=== PATIENT | female | born 1995 | race African-American/Black ===

== ENCOUNTER 2017-04-27 17:52 | Emergency (ER) | payer MEDICARE, OTHER ==
[~2017-04-27] VITALS: Ht 162.6 cm; Wt 64.0 kg
[~2017-04-27 17:52] MED LIST: ALBU6.7H3
[2017-04-27 18:00] VITALS: BP 153/92
[2017-04-27] MEDS ORDERED: SUMA100T16 PO (18:06)
[2017-04-27] MEDS ORDERED: CETI-101 PO (18:07)
[2017-04-27] MEDS ORDERED: ORAL CONTRACEPTIVE (18:07)
[2017-04-27] MEDS ORDERED: FLUT9.9S NS (18:07)
== END 2017-04-28 01:25 | disposition left against medical advice (07) ==
LOC: ER 04-28 01:17
DX: N39.9 Disorder of urinary system, unspecified (principal); N89.8 Other specified noninflammatory disorders of vagina; Z53.21 Procedure and treatment not carried out due to patient leaving prior to being seen by health care provider

== ENCOUNTER 2021-03-13 01:27 | Emergency (ER) | payer OTHER ==
[~2021-03-13] VITALS: Ht 160 cm; Wt 69.0 kg
[~2021-03-13 01:27] MED LIST changes: -ALBU6.7H3; +ALBU6.7H9; +CETI-89 PO; +FLUT9.9S NS; +ORAL CONTRACEPTIVE; +SUMA100T16 PO
[2021-03-13] MEDS ORDERED: HYDROCODONE/ACETAMINOPHEN 5/325MG TABLET PO STA (02:32)
[2021-03-13 02:42] LABS: CLARITY URINE CLEAR (CLEAR); COLOR URINE ORANGE (YELLOW); KETONES URINE NEGATIVE (NEGATIVE); LEUKOCYTE ESTERASE URINE TRACE (NEGATIVE); NITRITE URINE NEGATIVE (NEGATIVE); OCCULT BLOOD URINE 3+ (NEGATIVE); PH URINE 6.5 (4.5-8.0); PROTEIN URINE 1+ (NEGATIVE); SPECIFIC GRAVITY URINE 1.007 (1.005-1.030); UROBILINOGEN URINE 0.2 E.U./dL (0.2-1.0)
[2021-03-13 03:14] LABS: CHLORIDE 107 mEq/L (98-107)
[2021-03-13 03:15] LABS: BASOPHILS % 0.4 % (0.0-2.0); EOSINOPHILS % 0.6 % (0.0-5.0); HEMATOCRIT. 35.4 % (36.0-48.0); HEMOGLOBIN. 11.8 g/dL (12.0-16.0); LYMPHOCYTES % 25.9 % (20.0-50.0); MEAN CORPUSCULAR HEMOGLOBIN 31.2 pg (28.0-32.0); MEAN CORPUSCULAR VOLUME 93.8 fL (81.0-99.0); MEAN PLATELET VOLUME 8.6 fl (7.4-10.4); MONOCYTES % 6.8 % (2.0-8.0); NEUTROPHILS % 66.3 % (40.0-76.0); PLATELET 207 x1000/uL (130-400); RED BLOOD CELL COUNT 3.77 mill/uL (4.2-5.4); RED CELL DISTRIBUTION WIDTH 13.1 % (11.6-14.6)
[2021-03-13 04:41] LABS: HCG SCREEN NEGATIVE
[2021-03-13] MEDS ORDERED: TAMS-11 MT (05:43)
[2021-03-13] MEDS ORDERED: IBUP-2029 MT (05:43)
[2021-03-13 06:03] VITALS: BP 129/82
== END 2021-03-13 06:05 | disposition home or self-care (01) ==
LOC: ER 01:40
DX: N20.2 Calculus of kidney with calculus of ureter (principal); R03.0 Elevated blood-pressure reading, without diagnosis of hypertension; J45.909 Unspecified asthma, uncomplicated
CPT/HCPCS: 36415; 74176; 80053; 81003; 84703; 85025; 93005; 99285